=== PATIENT | male | born 1935 | race Caucasian/White ===

== ENCOUNTER → 2017-05-25 | Outpatient (CLI) | payer OTHER | END | disposition home or self-care (01) | LOC: PCVCCLINIC 14:20 | DX: I25.10 Atherosclerotic heart disease of native coronary artery without angina pectoris (principal); I10 Essential (primary) hypertension; E78.5 Hyperlipidemia, unspecified; Z79.899 Other long term (current) drug therapy; Z95.0 Presence of cardiac pacemaker | CPT/HCPCS: 80061; 93283; G0463 ==

== ENCOUNTER → 2017-11-26 | Outpatient (CLI) | payer OTHER | END | disposition home or self-care (01) | LOC: PCVCCLINIC 11:55 | PROVIDERS: ATTEND Internal Medicine Cardiovascular Disease | DX: I25.10 Atherosclerotic heart disease of native coronary artery without angina pectoris (principal); I48.2 Chronic atrial fibrillation; I42.9 Cardiomyopathy, unspecified; E78.5 Hyperlipidemia, unspecified; I10 Essential (primary) hypertension; Z95.0 Presence of cardiac pacemaker | CPT/HCPCS: 80061; 93279; G0463 ==

== ENCOUNTER → 2018-06-17 | Outpatient (CLI) | payer OTHER ==
--- NOTE | 2018-06-17 13:56 | PCVCIMAG ---
APPROVED REPORT Study performed: 06/17/2018 10:31:16 EXAM: Comprehensive 2D, Doppler, and color-flow Echocardiogram Patient Location: Echo lab Status: routine BSA: 1.99 HR: 60 bpmBP: 110/70 mmHg Rhythm: NSR Other Information Study Quality: Adequate Risk Factors: Cardiac Risk Factors: HTN, Hyperlipidemia Indications Atrial Fibrillation Cardiomyopathy AICD 2D Dimensions IVSd: 7.38 (7-11mm)LVOT Diam: 19.96 (18-24mm) LVDd: 57.54 mm PWd: 7.87 (7-11mm)Ascending Ao: 41.11 (22-36mm) LVDs: 53.37 (25-40mm) Left Atrium: 58.50 (27-40mm) Aortic Root: 35.30 mm LV Single Plane 4CH: 18.99 % LV Single Plane 2CH: 35.49 % Biplane EF: 25.9 % Volumes Left Atrial Volume (Systole) Single Plane 4CH: 96.94 mLSingle Plane 2CH: 76.12 mL LA ESV Index: 48.00 mL/m2 Aortic Valve AoV Peak Colt.: 1.10 m/s AO Peak Gr.: 4.82 mmHgLVOT Max P.14 mmHg LVOT Max V: 0.85 m/s AARON Vmax: 2.43 cm2 AI Vmax: 3.54 m/s AI Casey: 1.48 m/s2 AI PHT: 692.57 ms Mitral Valve E/A Ratio: 1.1 MV Decel. Time: 689.24 ms MV E Max Colt.: 0.75 m/s MV A Colt.: 0.70 m/s Pulmonary Valve PV Peak Gr.: 1.78 mmHg Tricuspid Valve TR Peak Colt.: 3.19 m/s TR Peak Gr.: 40.68 mmHg Left Ventricle Left ventricle is dilated. There is normal left ventricular wall thickness. Left ventricular ejection fraction is severely decreased. LVEF is 15-20%. This study is not technically sufficient to allow evaluation of the LV diastolic function. Right Ventricle The right ventricle is normal size. The right ventricular systolic function is normal. Device lead is present in the right ventricle. Atria The left atrium size is normal. The right atrium size is normal. Pacemaker lead is present in the right atrium. Aortic Valve The aortic valve is normal in structure. No aortic regurgitation is present. There is no aortic valvular stenosis. Mitral Valve The mitral valve is normal in structure. Mild to moderate mitral regurgitation. No evidence of mitral valve stenosis. Tricuspid Valve The tricuspid valve is normal in structure. Mild tricuspid regurgitation. Pulmonary artery pressure is 48mmHg. Pulmonic Valve The pulmonary valve is normal in structure. Mild pulmonic regurgitation. Great Vessels The aortic root is normal in size. IVC is normal in size and collapses >50% with inspiration. Pericardium There is no pericardial effusion. <Conclusion> Left ventricle is dilated. Left ventricular ejection fraction is severely decreased. LVEF is 15-20%. This study is not technically sufficient to allow evaluation of the LV diastolic function. The right atrium size is normal. Pacemaker lead is present in the right atrium. Device lead is present in the right ventricle. The aortic valve is normal in structure. Mild to moderate mitral regurgitation. Mild tricuspid regurgitation. Pulmonary artery pressure is 48mmHg. Mild pulmonic regurgitation. There is no pericardial effusion.
== END | disposition home or self-care (01) ==
LOC: PCVCIMAG 10:27
PROVIDERS: ATTEND Internal Medicine Cardiovascular Disease
DX: I08.8 Other rheumatic multiple valve diseases (principal); I11.0 Hypertensive heart disease with heart failure; I50.9 Heart failure, unspecified; I48.2 Chronic atrial fibrillation; I25.10 Atherosclerotic heart disease of native coronary artery without angina pectoris; E78.00 Pure hypercholesterolemia, unspecified; I25.5 Ischemic cardiomyopathy; D68.59 Other primary thrombophilia; G61.81 Chronic inflammatory demyelinating polyneuritis; E78.5 Hyperlipidemia, unspecified; Z95.0 Presence of cardiac pacemaker; Z88.8 Allergy status to other drugs, medicaments and biological substances; Z79.899 Other long term (current) drug therapy
CPT/HCPCS: 93306

== ENCOUNTER → 2018-12-19 | Outpatient (CLI) | payer OTHER | END | disposition home or self-care (01) | LOC: PCVCCLINIC 15:00 | PROVIDERS: ATTEND Internal Medicine Cardiovascular Disease | DX: I25.10 Atherosclerotic heart disease of native coronary artery without angina pectoris (principal); I10 Essential (primary) hypertension; I42.9 Cardiomyopathy, unspecified; I48.21 Permanent atrial fibrillation; D68.59 Other primary thrombophilia; E78.00 Pure hypercholesterolemia, unspecified; G61.81 Chronic inflammatory demyelinating polyneuritis; R07.9 Chest pain, unspecified; E78.5 Hyperlipidemia, unspecified; Z95.810 Presence of automatic (implantable) cardiac defibrillator; Z79.899 Other long term (current) drug therapy; Z88.8 Allergy status to other drugs, medicaments and biological substances | CPT/HCPCS: 36415; 80061; 93005; 93284; G0463 ==

== ENCOUNTER → 2018-12-25 | Outpatient (CLI) | payer OTHER ==
[~2018-12-25] MED LIST: REGADENOSON 0.4 MG/5 ML DISP.SYRIN. IV ONE
--- NOTE | 2018-12-25 17:07 | PCVCIMAG ---
APPROVED REPORT Imaging Protocol: Rest Tc-99m/Stress Tc-99m 1 day Study performed: 12/25/2018 10:39:57 Indication: Chest pain, Atrial Fibrillation, Fatigue, CAD, ICM Patient Location: Out-Patient Stress Nurse: Alanna Judge RN, Kell Li RN RI Tech:YAN Stone Ht: 6 ft 0 in Wt: 170 lbs BSA: 1.99 m2 HR: 61 bpm BP: 134/66 mmHg BMI: 23.0 Rhythm: Pacemaker Medical History Medical History: Hyperlipidemia, HTN, Atrial Fibrillation, Pacemaker in situ, [place] Medications: Metoprolol, Eliquis, Pravastatin, Entresto, Lasix Allergies: Dopam;ine Cardiac Risk Factors: Age Previous Cardiac Procedures: PCI Pretest Chest Pain Characteristics: No chest pain Exercise History: Sedentary Meds Held (24 hrs): Metoprolol Resting Data Rest SPECT myocardial perfusion imaging was performed in supine position 45 minutes following the intravenous injection of 10.7 mCi of Tc-99m Sestamibi. Time of rest injection: 944 Administration Route: IV Administration Site: Right AC Pharmacologic Stress Pharmacologic stress test was performed by injecting Regadenoson 0.4 mg IV push over 10-15 seconds immediately followed by the intravenous injection of 34.8 mCi of Tc-99m Sestamibi. Time of stress injection: 0 Date: 12/25/2018 Administration Route: IV Administration Site: Right AC Gated Stress SPECT was performed 45 minutes after stress injection. The images were gated to evaluate regional wall motion and calculate left ventricular ejection fraction. Stress Test Details Stress Test: Pharmacologic stress testing performed using 0.4 mg of regadenoson per 5 mL given IV over 10 seconds. Reason for pharmacologic stress test: physical limitation, pacemaker. HRMax Heart Rate (APMHR): 136 bpm Resting HR: 61 bpmTarget HR (85% APMHR): 115 bpm Max HR Achieved: 62 bpm % of APMHR: 45 Recovery HR: 61 bpm BP Resting BP: 134/66 mmHg Max BP: 125/73 mmHg Recovery BP: 117/59 mmHg ECG Resting ECG: Paced Rhythm Stress ECG: Paced Rhythm Arrhythmia: PVC's Recovery ECG: Paced Rhythm Clinical Reason for Termination: Completed protocol Stress Symptoms: Dyspnea, Lightheaded Symptoms resolved with caffeine. Stress ECG Conclusion ECG:non diagnostic paced Study Quality Study: Good Study Data Post stress, the left ventricular ejection was 20%.. SSS: 34 SRS: 36 SDS: 0 TID = 1.08. Perfusion No evidence of stress induced ischemia. 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 Nuclear Conclusion No evidence of stress induced ischemia. 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 Little overall change since January 2015. Post stress, the left ventricular ejection was 20%. Interpreted by: Anderson Rooney MD Electronically Approved: 12/25/2018 16:25:52 <Conclusion> ECG:non diagnostic paced
== END | disposition home or self-care (01) ==
LOC: PCVCIMAG 09:28
PROVIDERS: ATTEND Internal Medicine Cardiovascular Disease
DX: I42.9 Cardiomyopathy, unspecified (principal); I25.10 Atherosclerotic heart disease of native coronary artery without angina pectoris; I11.0 Hypertensive heart disease with heart failure; I50.89 Other heart failure; I25.2 Old myocardial infarction; I48.91 Unspecified atrial fibrillation; E78.5 Hyperlipidemia, unspecified; Z95.0 Presence of cardiac pacemaker; Z79.899 Other long term (current) drug therapy; Z90.49 Acquired absence of other specified parts of digestive tract; Z82.49 Family history of ischemic heart disease and other diseases of the circulatory system; Z88.8 Allergy status to other drugs, medicaments and biological substances
CPT/HCPCS: 78452; 93017; A9500; J2785